=== PATIENT | female | born 2005 | race Caucasian/White ===

== ENCOUNTER 2024-04-20 22:50 | Emergency (ER) | payer OTHER, SELFPAY ==
[2024-04-20 23:03] VITALS: BP 126/86
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
[2024-04-21 00:34] VITALS: BP 118/75
== END 2024-04-21 00:35 | disposition home or self-care (01) ==
LOC: EMR 22:50
PROVIDERS: EMERGENCY PHYSICIAN Student in an Organized Health Care Education/Training Program
DX: R55 Syncope and collapse (principal); R09.89 Other specified symptoms and signs involving the circulatory and respiratory systems; Y04.8XXA Assault by other bodily force, initial encounter; Z88.8 Allergy status to other drugs, medicaments and biological substances
CPT/HCPCS: 99282